=== PATIENT | female | born 2000 | race Caucasian/White ===

== ENCOUNTER 2023-03-16 08:26 | Day surgery (SDC) | payer BC ==
[2023-03-15 11:44] VITALS: BMI 22.6
[2023-03-15 13:57] LABS: Hematocrit 38.8 % (34.9-44.5); Hemoglobin 13.2 g/dL (12.0-15.5); Mean Corpuscular Volume 91.1 fl (81.6-98.3); Mean Platelet Volume 10.9 fl (7.4-10.4); Platelet Count 275 10x3/uL (150-450); RBC Distribution Width 12.5 % (11.5-14.5); Red Blood Cell (RBC) Count 4.26 10x6/uL (3.90-5.03); White Blood Cell (WBC) Count 5.2 10x3/uL (3.5-10.5)
[2023-03-15 14:37] LABS: BHCG - Serum Negative (NEGATIVE); Pregs Control Background? CLEAR/WHITE (CLR/WHITE); Pregs Control Bar Appear? YES (CONTROL BAR)
[2023-03-16] MEDS ORDERED: CeleCOXIB 100 MG CAP ONE (08:34)
[2023-03-16] MEDS ORDERED: Gabapentin 300 MG CAP ONE (08:34)
[2023-03-16] MEDS ORDERED: Famotidine/PF 20 mg/2ml Vial ONE (08:35)
[2023-03-16] MEDS ORDERED: EPINEPHrine 1 MG/ML VIAL ONE (08:36)
[2023-03-16] MEDS ORDERED: Bupivacaine PF 0.5% 30 ML VIAL ONE (08:36)
[2023-03-16] MEDS ORDERED: SUGAMMADEX SODIUM 200 MG/2 ML VIAL ONE (09:47)
[2023-03-16] MEDS ORDERED: fentaNYL 50 mcg/mL 1 mL Vial ONE ×2 (09:49→09:50)
[2023-03-16] MEDS ORDERED: Rocuronium Bromide 10 MG/ML (10ML VIAL) ONE (09:51)
[2023-03-16] MEDS ORDERED: PROPOFOL 20 ML ONE (09:51)
[2023-03-16] MEDS ORDERED: Lidocaine 1% PF 5 ML VIAL ONE (09:51)
[2023-03-16] MEDS ORDERED: Midazolam HCl 2 mg/2 ml Vial ONE (09:56)
[2023-03-16] MEDS ORDERED: CEFAZOLIN 2 GM VIAL ONE (10:17)
[2023-03-16] MEDS ORDERED: Dexamethasone 4 mg/ml Vial ONE (11:37)
[2023-03-16] MEDS ORDERED: Ketorolac Tromethamine 30 MG/ML VIAL ONE (11:37)
[2023-03-16] MEDS ORDERED: Ondansetron PF 4 MG/2 ML Vial ONE (11:37)
[2023-03-16] MEDS ORDERED: Meperidine HCl/PF 25 MG/ML VIAL ONE (12:40)
== END 2023-03-16 14:05 | disposition home or self-care (01) ==
LOC: CSHSDC 08:26
PROVIDERS: ATTEND Obstetrics & Gynecology
PROC: 0UB14ZZ Excision of Left Ovary, Percutaneous Endoscopic Approach (ICD-10-PCS; principal; 2023-03-16)
DX: N80.102 Endometriosis of left ovary, unspecified depth (principal); N80.00 Endometriosis of the uterus, unspecified; N94.10 Unspecified dyspareunia; N92.6 Irregular menstruation, unspecified; N97.9 Female infertility, unspecified
CPT/HCPCS: 36415; 84703; 85027; 86850; 86900; 86901; 88305; J0171; J1100; J1885; J2175; J2250; J2405; J2704; J3010; Q9968; S0020; S0028